=== PATIENT | male | born 1940 | race Caucasian/White ===

== ENCOUNTER 2017-09-27 10:41 | Day surgery (SDC) | payer OTHER ==
[2017-09-27] MEDS ORDERED: ceFAZolin 2 GM/SWFI 2 GM/20 ML SYR IVP ONE (11:00)
[2017-09-27] MEDS ORDERED: LR 1,000 ML IV ONE (11:04)
[2017-09-27] MEDS ORDERED: LIDOCAINE 1% 2 ML INJ ID PRN (11:04)
[2017-09-27] MEDS ORDERED: BUPIVACAINE 0.5% 30 ML SDV ONE (12:00)
--- NOTE | 2017-09-27 12:00 | PDHPUP ---
History & Physical Update H&P update statement: This history and physical update is based on an assessment of the patient which was completed after admission or registration (within 24 hours), but prior to the surgery/procedure. H&P update: H&P reviewed & patient examined, no change in patient's condition since H&P completed
--- NOTE | 2017-09-27 12:11 | PDANEPAE ---
ANE History of Present Illness 77 year old male presents for laparoscopic bilateral inguinal hernia. ANE Past Medical History - Cardiovascular History Hx Hypertension: No Hx Arrhythmias: No Hx Chest Pain: No Hx Coronary Artery / Peripheral Vascular Disease: No Hx CHF / Valvular Disease: No Hx Palpitations: No - Pulmonary History Hx COPD: No Hx Asthma/Reactive Airway Disease: No Hx Recent Upper Respiratory Infection: No Hx Oxygen in Use at Home: No Hx Sleep Apnea: No Sleep Apnea Screening Result - Last Documented: Negative - Neurologic History Hx Cerebrovascular Accident: No Hx Seizures: No Hx Dementia: No - Endocrine History Hx Diabetes: No Hypothyroid: No Hyperthyroid: No - Renal History Hx Renal Disorders: No - Liver History Hx Hepatic Disorders: No - Neurological & Psychiatric Hx Hx Neurological and Psychiatric Disorders: No - Cancer History Hx Cancer: No - Congenital Disorder History Hx Congenital Disorders: No - GI History Hx Gastrointestinal Disorders: Yes Gastrointestinal History Comment: bilateral hernias - Chronic Pain History Chronic Pain: No - Surgical History Prior Surgeries: ankle sx 2013 ANE Review of Systems Review of systems is: negative Review of Systems: - Exercise capacity Exercise capacity: >=4 METS METS (RN): 4 METS ANE Patient History - Allergies Allergies/Adverse Reactions: No Known Allergies Allergy (Unverified 09/22/17 16:08) - Home Medications Home Medications: Aspirin 81mg (*) 09/22/17 [Last Taken 09/20/17] Simvastatin 09/22/17 [Last Taken 09/26/17] - NPO status NPO Status: no food or drink >8 hours NPO Since - Liquids (Date): 09/27/17 NPO Since - Liquids (Time): 07:30 NPO Since - Solids (Date): 09/26/17 NPO Since - Solids (Time): 21:00 - Anes Hx Anes Hx: slow to awaken from anesthesia - Smoking Hx Smoking Status: Former smoker Marijuana use: No - Alcohol Use Alcohol Use: Rarely - Family Anes Hx Family Anes Hx: neg - N/A Family Hx Anesthesia Complications: none ANE Labs/Vital Signs - Vital Signs Vital Signs: reviewed preoperatively; see RN documention for details Blood Pressure: 152/87 Heart Rate: 77 Respiratory Rate: 14 O2 Sat (%): 94 Height: 187.96 cm Weight: 104.326 kg ANE Physical Exam - Airway Neck exam: FROM Mallampati Score: Class 2 Mouth exam: normal dental/mouth exam - Pulmonary Pulmonary: no respiratory distress - Cardiovascular Cardiovascular: regular rate and rhythym - ASA Status ASA Status: II ANE Anesthesia Plan Anesthesia Plan: general endotracheal anesthesia Total IV Anesthesia: No
[2017-09-27] MEDS ORDERED: LIDOCAINE 2% 5 ML SDV ONE (12:53)
[2017-09-27] MEDS ORDERED: PROPOFOL 200 MG/20 ML VIAL ONE (12:53)
[2017-09-27] MEDS ORDERED: ROCURONIUM 50 MG/5 ML VIAL ONE (12:53)
[2017-09-27] MEDS ORDERED: fentaNYL 100 MCG/2 ML INJ ONE (12:53)
[2017-09-27] MEDS ORDERED: ONDANSETRON 4 MG/2 ML VIAL ONE (13:13)
[2017-09-27] MEDS ORDERED: DEXAMETHASONE 4 MG/ML VIAL ONE (13:13)
[2017-09-27] MEDS ORDERED: SUGAMMADEX SODIUM 200 MG/2 ML VIAL IVP ONE (13:19)
[2017-09-27] MEDS ORDERED: PHENYLEPHRINE HCL 100 MCG/ML SYR ONE (13:20)
[2017-09-27] MEDS ORDERED: LABETALOL HCL 5 MG/ML 20 ML MDV IVP PRN (13:22)
[2017-09-27] MEDS ORDERED: LR 500 ML IV PRN (13:22)
[2017-09-27] MEDS ORDERED: fentaNYL 100 MCG/2 ML INJ IVP PRN (13:22)
[2017-09-27] MEDS ORDERED: NALOXONE HCL 0.4 MG/ML INJ IVP PRN (13:22)
[2017-09-27] MEDS ORDERED: ONDANSETRON 4 MG/2 ML VIAL IVP PRN (13:22)
[2017-09-27] MEDS ORDERED: PHENYLEPHRINE HCL 100 MCG/ML SYR IVP PRN (13:22)
[2017-09-27] MEDS ORDERED: HYDROCODONE/APAP 5/325 TAB PO PRN (13:22)
[2017-09-27] MEDS ORDERED: HYDROmorphONE/DILAUDID 1 MG/ML INJ IVP PRN (13:22)
--- NOTE | 2017-09-27 14:17 | POSTOPPROG ---
Post Op Note Date of Operation: 09/27/17 Surgeon: León Luu Anesthesia: GET(General Endotracheal) Pre-op Diagnosis: BIH Post-op Diagnosis: same Procedure: Lap BIHR Inf/Abcess present in the surg proc area at time of surgery?: No EBL: Minimal
--- NOTE | 2017-09-27 14:56 | GOP ---
[f rep st] OPERATIVE REPORT DATE OF OPERATION: 09/27/2017 SURGEON: Sukumar Luu MD ANESTHESIA: General endotracheal anesthesia. PREOPERATIVE DIAGNOSIS: Bilateral inguinal hernia. POSTOPERATIVE DIAGNOSIS: Bilateral inguinal hernia. PROCEDURE PERFORMED: FINDINGS: The patient had a moderate indirect hernia, a large lipoma on the left, and a small indire ct hernia and a moderate lipoma on the right. ESTIMATED BLOOD LOSS: 20 cc. INDICATIONS: 77-year-old male with a history of groin bulge. Risks and benefits of the procedure we re discussed with the patient and his family. Their questions were answered, and they wished to proc eed. DESCRIPTION OF PROCEDURE: The patient was placed in the supine position. After the induction of brendan quate general endotracheal anesthesia, the patient was prepped and draped in the sterile surgical fas hion. Marcaine 0.5% was injected in the infra-umbilical area and a transverse incision was made, jeanmarie roximately 10 mm in length. This was carried down to the subcutaneous tissue with blunt dissection. The anterior fascia was exposed and incised just lateral to the midline. The preperitoneal space wa s then created bluntly, and the balloon dissector introduced. Once this was appropriately positioned , it was inflated under direct vision using the laparoscope. Once adequate dissection had been obtai ella, the balloon was deflated and withdrawn. The balloon stabilizer was then placed into the same pr eperitoneal plane. The balloon stabilizer was then inflated. The preperitoneal space was then insufflated with carbon dioxide. Two more trocars were placed, both in the midline in the supraumbilical and mid lower abdomen sites. These were both placed under dire ct vision after injecting 0.5% Marcaine for local anesthesia. Blunt dissection was used to expose Hesselbach's triangle. Jete's ligament was then exposed and th e femoral space explored. Next the space of Bogros was cleared laterally. The cord structures were seen and preserved, and the preperitoneal fat was retracted in a [id number] fashion. The hernia sac was then retracted in a similar fashion. A shaped mesh was then introduced through th e 11-mm trocar and oriented appropriately. It was positioned to ensure coverage of the direct, indir ect, and femoral spaces. The peritoneum and preperitoneal fat was placed over the bottom edge of the mesh to ensure placement. The carbon dioxide was then allowed to escape and the mesh observed to en sure positioning. All trocars were then removed under direct vision. Good hemostasis was noted. The fascia at the 11-mm trocar site was closed with 0 Vicryl in an interrupted fashion. The wounds w ere thoroughly irrigated, and the skin was closed with 5-0 Monocryl in a subcuticular stitch. The wo unds were sterilely dressed. The patient was extubated and taken to the post-anesthesia care unit in stable condition. PROCEDURE: Laparoscopic totally extraperitoneal bilateral inguinal hernia repair. COMPLICATIONS: None. DRAINS: None. ADDENDUM: A large Bard 3DMax mesh was used on each side. /[id number]/MODL
[2017-09-27 15:25] VITALS: TEMP 98.1
[2017-09-27 15:26] VITALS: O2SAT 94
[2017-09-27 15:48] VITALS: BP 115/69; PULSE 69; RESP 14
--- NOTE | 2017-09-27 20:11 | POSTANESTH ---
Post Anesthetic Evaluation Cardiovascular Status: Normal, Stable, Similar to Pre-Op Cond Respiratory Status: Normal, Stable, Similar to Pre-op Cond. Level of Consciousness/Mental Status: Can Participate in Eval, Alert and Oriented Pain Control: Adequate, Prn Tx Ordered Nausea/Vomiting Control: Adequate, Prn Tx Ordered Complications Possibly Related to Anesthesia: None Noted
== END 2017-09-27 16:18 | disposition home or self-care (01) ==
LOC: FSGY 10:41
PROVIDERS: ATTEND Surgery
PROC: 0YUA4JZ Supplement Bilateral Inguinal Region with Synthetic Substitute, Percutaneous Endoscopic Approach (ICD-10-PCS; principal; 2017-09-27 12:15)
DX: K40.20 Bilateral inguinal hernia, without obstruction or gangrene, not specified as recurrent (principal); Z87.891 Personal history of nicotine dependence
CPT/HCPCS: C1727; C1781; J0690; J1100; J2370; J2405; J2704; J3010

== ENCOUNTER → 2017-12-13 | Outpatient (CLI) | payer OTHER | LOC: FIMAGING 14:02 | PROVIDERS: ATTEND Surgery | DX: M25.552 Pain in left hip (principal); M16.0 Bilateral primary osteoarthritis of hip ==

== ENCOUNTER → 2018-04-25 | Outpatient (CLI) | payer OTHER | LOC: FIMAGING 12:48 | PROVIDERS: ATTEND Orthopaedic Surgery | DX: Z09 Encounter for follow-up examination after completed treatment for conditions other than malignant neoplasm (principal); Z96.642 Presence of left artificial hip joint; M16.11 Unilateral primary osteoarthritis, right hip; K42.9 Umbilical hernia without obstruction or gangrene; K57.30 Diverticulosis of large intestine without perforation or abscess without bleeding; N40.0 Benign prostatic hyperplasia without lower urinary tract symptoms; I70.90 Unspecified atherosclerosis; N43.3 Hydrocele, unspecified ==

== ENCOUNTER 2018-05-16 07:36 | Inpatient (IN) | payer OTHER ==
--- NOTE | 2018-05-16 06:25 | POSTANESTH ---
Post Anesthetic Evaluation Cardiovascular Status: Normal, Stable Respiratory Status: Normal, Stable Level of Consciousness/Mental Status: Can Participate in Eval, Alert and Oriented Pain Control: Adequate, Prn Tx Ordered Nausea/Vomiting Control: Adequate, Prn Tx Ordered Complications Possibly Related to Anesthesia: None Noted
--- NOTE | 2018-05-16 06:26 | PDANEPAE ---
ANE History of Present Illness 77 yo male with OA for L CARMELLA. ANE Past Medical History - Cardiovascular History Hx Hypertension: No Hx Arrhythmias: No Hx Chest Pain: No Hx Coronary Artery / Peripheral Vascular Disease: No Hx CHF / Valvular Disease: No Hx Palpitations: No Cardiovascular History Comment: hypercholesterolemia - Pulmonary History Hx COPD: No Hx Asthma/Reactive Airway Disease: No Hx Recent Upper Respiratory Infection: No Hx Oxygen in Use at Home: No Hx Sleep Apnea: No Sleep Apnea Screening Result - Last Documented: Positive - Neurologic History Hx Cerebrovascular Accident: No Hx Seizures: No Hx Dementia: No - Endocrine History Hx Diabetes: No Hypothyroid: No Obesity: no - Renal History Hx Renal Disorders: No - Liver History Hx Hepatic Disorders: No - Neurological & Psychiatric Hx Hx Neurological and Psychiatric Disorders: No - Cancer History Hx Cancer: No - Congenital Disorder History Hx Congenital Disorders: No - GI History Hx Gastrointestinal Disorders: No Gastrointestinal History Comment: bilateral hernias - Other Health History Other Health History: none - Chronic Pain History Chronic Pain: No - Surgical History Prior Surgeries: ankle sx 2013. hernia sx ANE Review of Systems Review of Systems: - Exercise capacity METS (RN): 4 METS - Systems Constitutional: Reports: no symptoms Cardiac: Reports: no symptoms Respiratory: Reports: no symptoms Muscolosketal: Reports: joint pain ANE Patient History - Allergies Allergies/Adverse Reactions: No Known Allergies Allergy (Verified 04/12/18 10:09) - Home Medications Home Medications: Aspirin [Aspirin 81mg (*)] 81 mg PO HS #0 09/22/17 [Last Taken 05/10/18] Simvastatin [Zocor] 20 mg PO HS #0 09/22/17 [Last Taken 05/13/18] Ibuprofen [Motrin (*)] 200 mg PO DAILY PRN 04/12/18 [Last Taken 05/13/18] - NPO status NPO Status: no food or drink >8 hours - Anes Hx Anes Hx: no prior problems - Smoking Hx Smoking Status: Former smoker Marijuana use: No - Alcohol Use Alcohol Use: Occasionally (3 beer/week) - Family Anes Hx Family Anes Hx: none Family Hx Anesthesia Complications: none ANE Labs/Vital Signs - Vital Signs Vital Signs: reviewed preoperatively; see RN documention for details Height: 187.96 cm Weight: 102.058 kg ANE Physical Exam - Airway Neck exam: FROM Mallampati Score: Class 2 Mouth exam: normal dental/mouth exam, abnormal chin (short TMD) - Pulmonary Pulmonary: clear to auscultation - Cardiovascular Cardiovascular: regular rate and rhythym (fixed split S1) - ASA Status ASA Status: II ANE Anesthesia Plan Anesthesia Plan: spinal
--- NOTE | 2018-05-16 06:39 | PDIAF ---
- Diagnosis Diagnosis: left yamil Code Status: Full Code - Medication Management Discharge Medications: Medications to Continue on Transfer Aspirin [Aspirin 81mg (*)] 81 mg PO HS #0 09/22/17 [Last Taken 09/20/17] Simvastatin [Zocor] 20 mg PO HS #0 09/22/17 [Last Taken 09/26/17] Ibuprofen [Motrin (*)] 200 mg PO DAILY PRN 04/12/18 [Last Taken Unknown] Discharge Medications: Refer to the Discharge Home Medication list for PRN reason. - Orders Services needed: Physical Therapy Diet Recommendation: no restrictions on diet Diet Texture: Regular Texture Diet Additional Instructions: TOTAL JOINT ARTHROPLASTY DISCHARGE INSTRUCTIONS 1. Your surgeon follows the [facility] protocol for reducing your risk of DVT (blood clots) following surgery. Medication will be ordered to prevent blood clots. A sudden increase in calf pain and/or swelling could indicate a blood clot in your leg. If this occurs, please call your surgeon or his/her export sales assistant. An ultrasound of the leg may be necessary to diagnose a blood clot. If you have conditions that make you a higher risk for blood clots, your surgeon may use more aggressive ways to prevent them. Notify your surgeon if you think you are a high risk for blood clots. 2. Wear your white surgical stockings (STACEY hose) for 2 weeks. This decreases your swelling and may help prevent blood clots. It is ok to remove STACEY hose at night time to give your legs a break. 3. Swelling and bruising in the surgical leg is common. If you feel that it is excessive, please notify your surgeon. 4. Elevate your surgical leg with the ankle above the hip several times every day. Please keep the leg straight when you elevate by putting pillows under your foot. Do not put pillows under your knee. This will make being able to fully straighten more difficult. This is uncomfortable, but try to do it as much as possible. 5. For total knee replacements use compressive wrap on your knee for 3-5 days after surgery, then you can discontinue it. 6. Use a walker or crutches for 1-2 weeks. Progress your weight-bearing as tolerated. You may start to use a cane when you feel stable and safe. 7. You will receive physical therapy instructions in the hospital. Continue those exercises at home. There are additional exercises in the total joint booklet you were given before surgery. Outpatient physical therapy will begin 7- 10 days after surgery. Please schedule this in advance. 8. Use ice on your knee at least 3-5 times every day for 30 minutes. This helps reduce pain and swelling. Also use it at night before falling asleep. 9. Leave your surgical dressing in place for 2 weeks. Your dressing is water resistant, but not waterproof. Cover it with Saran Wrap or Btmyx-k-Ojwd before showering. You may shower as soon as you feel safe entering a shower. If you notice bleeding from your incision 2 or 3 days after surgery, please notify your surgeon. 10. Due to narcotics, decreased activity and altered diet, most patients experience constipation after surgery. Use wiie-hxs-auryixb stool softeners while you are on narcotics. 11. You may drive a car when you are comfortable bearing weight, have good muscular control of your leg and are off narcotics. This usually occurs 2-4 weeks after surgery, depending on which leg was operated on. 12. If there are questions not addressed here, please refer the [facility] book given for more information. If you still have questions, please contact your surgeon s office. 13. If you have a life-threatening emergency, please call 911 and go to the emergency room immediately. For non-life threatening emergencies, please call your physicians office for advice before going to the emergency room. - Follow Up Care Current Providers and Referrals: Raul Donaldson MD [Primary Care Provider] - Maximiliano Gonzalez MD [Medical Doctor] -
--- NOTE | 2018-05-16 06:39 | PDHPUP ---
History & Physical Update H&P update statement: This history and physical update is based on an assessment of the patient which was completed after admission or registration (within 24 hours), but prior to the surgery/procedure. H&P update: no change in patient's condition since H&P completed
[~2018-05-16 07:36] MED LIST: CEFAZOLIN 1 GM/DEXTROSE/50 ML BAG IV ONE; ROPIVACAINE 0.2% 80 MG, EPINEPHrine 0.2 MG, KETOROLAC TROMETHAMINE 30 MG, morphINE 10 M... IU ONE; TRANEXAMIC ACID 2,000 MG in NS 100 ML IV ONE
[2018-05-16] MEDS ORDERED: ACETAMINOPHEN 325 MG TAB PO ONE (07:43)
[2018-05-16] MEDS ORDERED: ceFAZolin 2 GM/DEXTROSE 100 ML IV ONE (07:43)
[2018-05-16] MEDS ORDERED: FAMOTIDINE 20 MG TAB PO ONE (07:43)
[2018-05-16] MEDS ORDERED: LIDOCAINE 1% 2 ML INJ ID PRN (07:44)
[2018-05-16] MEDS ORDERED: LR 1,000 ML IV ONE (07:44)
[2018-05-16] MEDS ORDERED: BUPIVACAINE/DEXTROSE 7.5MG/ML 2 ML SPINAL AMP SP ONE ×2 (08:22→08:31)
[2018-05-16] MEDS ORDERED: DEXAMETHASONE 4 MG/ML VIAL ONE (08:22)
[2018-05-16] MEDS ORDERED: PROPOFOL/EMULSION 500 MG/50 ML BOTTLE IV ONE (08:23)
[2018-05-16] MEDS ORDERED: fentaNYL 100 MCG/2 ML INJ ONE (08:23)
[2018-05-16] MEDS ORDERED: PHENYLEPHRINE HCL 100 MCG/ML SYR ONE (09:23)
[2018-05-16] MEDS ORDERED: PROPOFOL 200 MG/20 ML VIAL ONE (09:31)
[2018-05-16] MEDS ORDERED: NALOXONE HCL 0.4 MG/ML INJ IVP PRN (09:52)
[2018-05-16] MEDS ORDERED: ONDANSETRON 4 MG/2 ML VIAL IVP PRN ×2 (09:52→10:07)
[2018-05-16] MEDS ORDERED: ACETAMINOPHEN 500 MG TAB PO PRN (09:52)
[2018-05-16] MEDS ORDERED: fentaNYL 100 MCG/2 ML INJ IVP PRN (09:52)
[2018-05-16] MEDS ORDERED: ALBUTEROL 3 ML DEYVIAL IH PRN (09:52)
[2018-05-16] MEDS ORDERED: DIAZEPAM 5 MG/ML 1 ML SYR IVP PRN (09:52)
[2018-05-16] MEDS ORDERED: oxyCODONE IR 5 MG TAB PO PRN (09:52)
[2018-05-16] MEDS ORDERED: LR 500 ML IV PRN (09:52)
[2018-05-16] MEDS ORDERED: LACTULOSE 20 GM/30 ML UDCUP PO PRN (10:07)
[2018-05-16] MEDS ORDERED: BISACODYL 10 MG SUPP PR PRN (10:07)
[2018-05-16] MEDS ORDERED: PROMETHAZINE HCL 25 MG/ML INJ IVP PRN (10:07)
[2018-05-16] MEDS ORDERED: CYCLOBENZAPRINE 10 MG TAB PO PRN (10:07)
[2018-05-16] MEDS ORDERED: PROMETHAZINE HCL 25 MG SUPPR PR PRN (10:07)
[2018-05-16] MEDS ORDERED: TEMAZEPAM 15 MG CAP PO PRN (10:07)
[2018-05-16] MEDS ORDERED: diphenhydrAMINE 25 MG CAP PO PRN (10:07)
[2018-05-16] MEDS ORDERED: POLYETHYLENE GLYCOL 3350 17 GM PKT PO PRN (10:07)
[2018-05-16] MEDS ORDERED: DIPHENOXYLATE/ATROPINE LOMOTIL 1 TAB PO PRN (10:07)
[2018-05-16] MEDS ORDERED: MAGNESIUM HYDROXIDE 30 ML UDCUP PO PRN (10:07)
[2018-05-16] MEDS ORDERED: ONDANSETRON DISINTEGRATING 4 MG TAB PO PRN (10:07)
[2018-05-16] MEDS ORDERED: METOCLOPRAMIDE 10 MG/2 ML VIAL IVP PRN (10:07)
--- NOTE | 2018-05-16 10:07 | POSTOPPROG ---
Post Op Note Date of Operation: 05/16/18 Surgeon: Maximiliano Gonzalez Oil Heat Technician: michael Anesthesiologist: acacia Anesthesia: Spinal Pre-op Diagnosis: left hip djd Post-op Diagnosis: same Indication: same Procedure: left yamil Inf/Abcess present in the surg proc area at time of surgery?: No Depth: Deep Incisional (Fascial) EBL: 100-500 Drains: Hemovac
[2018-05-16] MEDS: LR 1,000 ML IV SCH ×2 (11:55→21:04)
[2018-05-16] MEDS: ACETAMINOPHEN 325 MG TAB PO SCH ×2 (11:55→17:17)
[2018-05-16] MEDS: oxyCODONE IR 5 MG TAB PO PRN (12:24)
--- NOTE | 2018-05-16 12:25 | PDMN ---
Medical Necessity Medical necessity: [facility] IP only surgery; cpt [id number] L CARMELLA
--- NOTE | 2018-05-16 14:40 | ASMTCASEMG ---
Living Arrangements What is your living Answers: With Spouse arrangement? Who do you live with? Type Of Residence What kind of residence do Answers: House you live in? Discharge Plan Comments Coordination Status Comments Notes: Pt is a 77 y/o man admitted for a planned total hip surgery w/ Dr. Gonzalez. Dr. Gonzalez would like pt to d/c home w/ HC, PT. CM met w/ pt for dispo planning. Pt is not certain if he wants HC vs outpatient rehab. CM provided pt w/ a list of HC agencies. It appears pt is leaning towards no HC. Therapies have been ordered and awaiting recommendations. CM provided pt w/ CM's phone number. Needs are TBD. CM to follow. Plan: TBD Date Signed: 05/16/2018 02:39 PM Electronically Signed By:SHASHA Aragon
[2018-05-16] MEDS: ceFAZolin 2 GM/DEXTROSE 100 ML IV SCH (16:39)
[2018-05-16] MEDS: TRANEXAMIC ACID 650 MG TAB PO SCH (16:39)
[2018-05-16] MEDS: ASPIRIN 325 MG TAB PO SCH (20:59)
[2018-05-16] MEDS ORDERED: ATORVASTATIN CALCIUM 10 MG TAB PO SCH (21:00)
[2018-05-16] MEDS: FAMOTIDINE 20 MG TAB PO SCH (21:00)
[2018-05-16] MEDS: SENNOSIDES/DOCUSATE SODIUM TAB PO SCH (21:01)
[2018-05-17] MEDS: ACETAMINOPHEN 325 MG TAB PO SCH ×2 (00:08→05:02)
[2018-05-17] MEDS: TRANEXAMIC ACID 650 MG TAB PO SCH ×2 (00:09→09:25)
[2018-05-17] MEDS: ceFAZolin 2 GM/DEXTROSE 100 ML IV SCH (00:09)
[2018-05-17] MEDS: oxyCODONE IR 5 MG TAB PO PRN ×2 (05:04→09:25)
--- NOTE | 2018-05-17 06:45 | PDIAF ---
- Diagnosis Diagnosis: left yamil Code Status: Full Code - Medication Management Discharge Medications: Medications to Continue on Transfer Simvastatin [Zocor] 20 mg PO HS #0 09/22/17 [Last Taken 05/13/18] Aspirin [Aspirin 325 mg (*)] 325 mg PO DAILY tab 05/17/18 [Last Taken Unknown] oxyCODONE IR [Oxycodone Ir (*)] 5 - 10 mg PO Q3HRS PRN #60 tab 05/17/18 [Last Taken Unknown] Discharge Medications: Refer to the Discharge Home Medication list for PRN reason. - Orders Services needed: Physical Therapy Diet Recommendation: no restrictions on diet Diet Texture: Regular Texture Diet Additional Instructions: TOTAL JOINT ARTHROPLASTY DISCHARGE INSTRUCTIONS 1. Your surgeon follows the [facility] protocol for reducing your risk of DVT (blood clots) following surgery. Medication will be ordered to prevent blood clots. A sudden increase in calf pain and/or swelling could indicate a blood clot in your leg. If this occurs, please call your surgeon or his/her speech therapy assistant. An ultrasound of the leg may be necessary to diagnose a blood clot. If you have conditions that make you a higher risk for blood clots, your surgeon may use more aggressive ways to prevent them. Notify your surgeon if you think you are a high risk for blood clots. 2. Wear your white surgical stockings (STACEY hose) for 2 weeks. This decreases your swelling and may help prevent blood clots. It is ok to remove STACEY hose at night time to give your legs a break. 3. Swelling and bruising in the surgical leg is common. If you feel that it is excessive, please notify your surgeon. 4. Elevate your surgical leg with the ankle above the hip several times every day. Please keep the leg straight when you elevate by putting pillows under your foot. Do not put pillows under your knee. This will make being able to fully straighten more difficult. This is uncomfortable, but try to do it as much as possible. 5. For total knee replacements use compressive wrap on your knee for 3-5 days after surgery, then you can discontinue it. 6. Use a walker or crutches for 1-2 weeks. Progress your weight-bearing as tolerated. You may start to use a cane when you feel stable and safe. 7. You will receive physical therapy instructions in the hospital. Continue those exercises at home. There are additional exercises in the total joint booklet you were given before surgery. Outpatient physical therapy will begin 7- 10 days after surgery. Please schedule this in advance. 8. Use ice on your knee at least 3-5 times every day for 30 minutes. This helps reduce pain and swelling. Also use it at night before falling asleep. 9. Leave your surgical dressing in place for 2 weeks. Your dressing is water resistant, but not waterproof. Cover it with Saran Wrap or Uqccn-f-Miad before showering. You may shower as soon as you feel safe entering a shower. If you notice bleeding from your incision 2 or 3 days after surgery, please notify your surgeon. 10. Due to narcotics, decreased activity and altered diet, most patients experience constipation after surgery. Use dbrn-ogi-facxjxg stool softeners while you are on narcotics. 11. You may drive a car when you are comfortable bearing weight, have good muscular control of your leg and are off narcotics. This usually occurs 2-4 weeks after surgery, depending on which leg was operated on. 12. If there are questions not addressed here, please refer the [facility] book given for more information. If you still have questions, please contact your surgeon s office. 13. If you have a life-threatening emergency, please call 911 and go to the emergency room immediately. For non-life threatening emergencies, please call your physicians office for advice before going to the emergency room. - Follow Up Care Current Providers and Referrals: Raul Donaldson MD [Primary Care Provider] - Maximiliano Gonzalez MD [Medical Doctor] -
--- NOTE | 2018-05-17 06:46 | SOAPPROG ---
SOAP Progress Note Assessment/Plan: Assessment: s/p yamil Plan:stable d/c home wbat dvt precautions reviewed 05/17/18 06:45 Subjective: mild pain no cp or sob Objective: Vital Signs Temp Pulse Resp BP Pulse Ox 36.7 C 66 17 151/80 H 93 05/17/18 03:46 05/17/18 03:46 05/17/18 03:46 05/17/18 03:46 05/17/18 03:46 Laboratory Results 05/17/18 05:30 05/16/18 05/17/18 05/18/18 05:59 05:59 05:59 Intake Total 3295 Output Total 1795 Balance 1500 dressing intact intact pfdf,ehl toes warm and pink neg [facility] xrays stable, concentric alignment no fx or lucency ICD10 Worksheet Patient Problems: Problems Problem Status Onset Hip arthritis Acute - ICD10 Problem Qualifiers (1) Hip arthritis
[2018-05-17 07:39] VITALS: BP 126/88
[2018-05-17] MEDS: ASPIRIN 325 MG TAB PO SCH (09:24)
[2018-05-17] MEDS: SENNOSIDES/DOCUSATE SODIUM TAB PO SCH (09:24)
[2018-05-17] MEDS: FAMOTIDINE 20 MG TAB PO SCH (09:24)
--- NOTE | 2018-05-17 14:16 | ASMTCMCOM ---
CM Note CM Note Notes: Pt had OA of hip, medically stable for d/c with [facility] PT. Date Signed: 05/17/2018 02:13 PM Electronically Signed By:MARLIN Howard
--- NOTE | 2018-05-17 14:18 | ASDISCHSUM ---
Discharge Information Plan Status:Home with Home Health Medically Cleared to Leave: Discharge Date:05/17/2018 11:51 AM CM D/C Disposition:Home Health Service ADT D/C Disposition:Home Health Service Projected Discharge Date:05/17/2018 11:00 AM Transportation at D/C: Discharge Delay Reason: Follow-Up Date:05/17/2018 11:00 AM Discharge Slot: Final Diagnosis: Placement Information Referral Type:*Home Health Care Services Referral ID:[id number] Provider Name:[facility] Address 1[address] Address 2: City:[place] Selection Factors: State:[place] Patient Contact Information Contact Name:DUY Relationship: Address:[address] City:[place] Alternate Phone: State/Zip Code:[place] [address] Email: Financial Information Financial Class:Medicare Primary Plan Desc:MEDICARE INPATIENT Primary Plan Number:[id number] Secondary Plan Desc:[place] Secondary Plan Number:[id number] Assessment Information [facility] Initial CM Assessment Living Arrangements What is your living Answers: With Spouse arrangement? Who do you live with? Type Of Residence What kind of residence do Answers: House you live in? Discharge Plan Comments Coordination Status Comments Notes: Pt is a 77 y/o man admitted for a planned total hip surgery w/ Dr. Gonzalez. Dr. Gonzalez would like pt to d/c home w/ HC, PT. CM met w/ pt for dispo planning. Pt is not certain if he wants HC vs outpatient rehab. CM provided pt w/ a list of HC agencies. It appears pt is leaning towards no HC. Therapies have been ordered and awaiting recommendations. CM provided pt w/ CM's phone number. Needs are TBD. CM to follow. Plan: TBD Date Signed: 05/16/2018 02:39 PM Electronically Signed By:SHASHA Aragon LACE LACE Length of stay for Answers: 2 days current admission Acuity / Level of Answers: Yes Care: Did the patient have an inpatient admission? # of Emergency department Answers: 0 visits in the last 6 months Score: 5 Date Signed: 05/17/2018 02:12 PM Electronically Signed By:MARLIN Howard BC CM Progress Note CM Note CM Note Notes: Pt had OA of hip, medically stable for d/c with [facility] PT. Date Signed: 05/17/2018 02:13 PM Electronically Signed By:MARLIN Howard Intervention Information
== END 2018-05-17 11:51 | disposition home health service (06) | DRG 470 ==
LOC: F3N 07:36
PROVIDERS: ADMIT Orthopaedic Surgery; ATTEND Orthopaedic Surgery
PROC: 8E0Y0CZ Robotic Assisted Procedure of Lower Extremity, Open Approach (ICD-10-PCS; principal; 2018-05-16 08:30)
PROC: 0SRB04Z Replacement of Left Hip Joint with Ceramic on Polyethylene Synthetic Substitute, Open Approach (ICD-10-PCS; principal; 2018-05-16 08:30)
DX: M16.12 Unilateral primary osteoarthritis, left hip (principal); E78.00 Pure hypercholesterolemia, unspecified; Z87.891 Personal history of nicotine dependence
CPT/HCPCS: 97116-GP; 97161-GP; 97165-GO; 97530-GP; 97535-GO; G8978-GP-CI; G8979-GP-CI; G8987-GO-CI; G8988-GO-CI; G8989-GO-CI; J0171; J0690; J1100; J1885; J2270; J2370; J2704; J2795; J3010

== ENCOUNTER → 2018-06-27 | Outpatient (CLI) | payer OTHER | LOC: BMCIMAGING 09:11 | PROVIDERS: ATTEND Physician Assistant | DX: Z09 Encounter for follow-up examination after completed treatment for conditions other than malignant neoplasm (principal); Z96.642 Presence of left artificial hip joint ==

== ENCOUNTER → 2018-08-10 | Outpatient (CLI) | payer OTHER | LOC: BMCIMAGING 09:06 | PROVIDERS: ATTEND Orthopaedic Surgery | DX: Z47.1 Aftercare following joint replacement surgery (principal); Z96.642 Presence of left artificial hip joint ==

== ENCOUNTER → 2018-11-16 | Outpatient (CLI) | payer OTHER | LOC: BMCIMAGING 09:10 | PROVIDERS: ATTEND Orthopaedic Surgery | DX: Z47.1 Aftercare following joint replacement surgery (principal); Z96.642 Presence of left artificial hip joint ==